=== PATIENT | male | born 1980 | race Two or more races ===

== ENCOUNTER 2017-03-15 14:19 | Emergency (ER) | payer SELFPAY ==
--- NOTE | 2017-03-15 15:00 | ER Document Report ---
ED General - General Chief Complaint: Leg Pain Stated Complaint: POSSIBLE BLOOD CLOT Time Seen by Provider: 03/15/17 14:49 TRAVEL OUTSIDE OF THE [place] IN LAST 30 DAYS: No - HPI Patient complains to provider of: Left Lower Extremity Pain 05/27. For the last month Onset/Duration: Gradual Quality of pain: Achy, Burning Severity: Severe Associated symptoms: None Exacerbated by: Sitting Relieved by: Standing Notes: 37-year-old man with history of previous pulmonary embolus presents with concern of blood clot in his left lower extremity. Patient is to the last month he has been having increasing calf pain. This is independent of swelling. No cords felt in his leg. When patient got his previous pulmonary embolus he was hospitalized at the time status post surgery. Denies any active malignancy or, fever. Patient denies any recent trauma or long travel. Denies that his legs are different sizes are overlying erythema. Denies shortness of breath or cough. - Related Data Allergies/Adverse Reactions: No Known Allergies Allergy (Unverified 03/15/17 14:23) Past Medical History - Social History Smoking Status: Never Smoker Chew tobacco use (# tins/day): No Frequency of alcohol use: None Drug Abuse: None Family History: None Renal/ Medical History: Denies: Hx Peritoneal Dialysis Past Surgical History: Reports: Hx Abdominal Surgery - tumor removal Review of Systems - Review of Systems Constitutional: No symptoms reported EENT: No symptoms reported Cardiovascular: No symptoms reported Respiratory: No symptoms reported Gastrointestinal: No symptoms reported Genitourinary: No symptoms reported Male Genitourinary: No symptoms reported Musculoskeletal: Other - Left calf tender, NOT located over deep venous system Skin: No symptoms reported Hematologic/Lymphatic: No symptoms reported Neurological/Psychological: No symptoms reported Physical Exam - Vital signs Vitals: Temp Pulse Resp BP Pulse Ox 97.8 F 95 16 157/119 H 98 03/15/17 14:23 03/15/17 14:23 03/15/17 14:23 03/15/17 14:23 03/15/17 14:23 Interpretation: Normal - General General appearance: Appears well, Alert - HEENT Head: Normocephalic, Atraumatic Eyes: Normal Pupils: PERRL - Respiratory Respiratory status: No respiratory distress Chest status: Nontender Breath sounds: Normal Chest palpation: Normal - Cardiovascular Rhythm: Regular Heart sounds: Normal auscultation Murmur: No - Abdominal Inspection: Normal Distension: No distension Bowel sounds: Normal Tenderness: Nontender Organomegaly: No organomegaly - Back Back: Normal, Nontender - Extremities General upper extremity: Normal inspection, Nontender, Normal color, Normal ROM , Normal temperature General lower extremity: Normal inspection, Tender, Normal color, Normal ROM, Normal temperature, Normal weight bearing. No: Edema, Nigel's sign - Neurological Neuro grossly intact: Yes Cognition: Normal Orientation: AAOx4 [place] Coma Scale Eye Opening: Spontaneous [place] Coma Scale Verbal: Oriented [place] Coma Scale Motor: Obeys Commands [place] Coma Scale Total: 15 Speech: Normal Motor strength normal: LUE, RUE, LLE, RLE Sensory: Normal - Psychological Associated symptoms: Normal affect, Normal mood - Skin Skin Temperature: Warm Skin Moisture: Dry Skin Color: Normal Course - Re-evaluation Re-evalutation: 03/15/17 15:00 Appearing young man with history of pulmonary embolus presents with concern of a DVT. [employer] DVT occurred. Patient is low risk with a score of 1, labs including d-dimer per 03/15/17 17:12 - Vital Signs Vital signs: Temp Pulse Resp BP Pulse Ox 97.6 F 60 16 149/98 H 100 03/15/17 17:03 03/15/17 17:03 03/15/17 17:03 03/15/17 17:03 03/15/17 17:03 - Laboratory Result Diagrams: 03/15/17 15:00 03/15/17 15:00 Laboratory results interpreted by me: 03/15/17 15:00 WBC 3.4 L Discharge - Discharge Clinical Impression: Left knee pain Qualifiers: Chronicity: acute Qualified Code(s): M25.562 - Pain in left knee Inguinal hernia Qualifiers: Obstruction and gangrene presence: without obstruction or gangrene Laterality: unilateral Recurrence: non-recurrent Qualified Code(s): K40.90 - Unilateral inguinal hernia, without obstruction or gangrene, not specified as recurrent Condition: Stable Disposition: HOME, SELF-CARE Instructions: Hernia ([facility]), Suspected Internal Knee Injury ([facility]) Additional Instructions: Follow up with your primary care provider and a surgeon in one to 2 days. Return to the emergency room immediately if symptoms worsen or any additional concerns. Referrals: NADINE WERNER MD [ACTIVE STAFF] - Follow up as needed
[2017-03-15 15:27] LABS: ABSOLUTE LYMPHOCYTES (AUTO) 1.3 10^3/uL (0.5-4.7); ABSOLUTE MONOCYTES (AUTO) 0.4 10^3/uL (0.1-1.4); ABSOLUTE NEUT (AUTO) 1.7 10^3/uL (1.7-8.2); BASOPHILS % (AUTO) 1.2 % (0-2); EOSINOPHILS % (AUTO) 0.3 % (0-6); HEMATOCRIT 46.8 % (37.9-51.0); HEMOGLOBIN 15.8 g/dL (13.5-17.0); HGB HCT DIFFERENCE 0.6; LYMPHOCYTES % (AUTO) 38.1 % (13-45); MEAN CORPUSCULAR HEMOGLOBIN 31.3 pg (27.0-33.4); MEAN CORPUSCULAR HGB CONC 33.9 g/dL (32.0-36.0); MEAN CORPUSCULAR VOLUME 92 fl (80-97); MONOCYTES % (AUTO) 11.1 % (3-13); RED BLOOD COUNT 5.07 10^6/uL (4.35-5.55); RED CELL DISTRIBUTION WIDTH 13.6 % (11.5-14.0); SEGMENTED NEUTROPHILS % (AUTO) 49.3 % (42-78); WHITE BLOOD COUNT 3.4 10^3/uL (4.0-10.5)
[2017-03-15 15:34] LABS: ANION GAP 13 (5-19); BLOOD UREA NITROGEN 10 mg/dL (7-20); CALCIUM 9.6 mg/dL (8.4-10.2); CARBON DIOXIDE 27 mmol/L (22-30); CHLORIDE 100 mmol/L (98-107); CREATININE RESULT 0.93 mg/dL (0.52-1.25); GLUCOSE 78 mg/dL (75-110); POTASSIUM 4.2 mmol/L (3.6-5.0); SODIUM 140.2 mmol/L (137-145)
--- NOTE | 2017-03-15 15:51 | ER Document Report ---
ED Extremity Problem, Lower - General Chief Complaint: Leg Pain Stated Complaint: POSSIBLE BLOOD CLOT Time Seen by Provider: 03/15/17 14:49 Mode of Arrival: Ambulatory Information source: Patient TRAVEL OUTSIDE OF THE [place] IN LAST 30 DAYS: No - HPI Patient complains to provider of: Pain, Swelling Location: Leg Occurred: Other - 2 weeks Onset/Duration: Gradual Quality of pain: Achy Severity: Moderate Pain Level: 3 Recent injury: No Associated symptoms: Chills Notes: Patient is a 37-year-old male who presents to the emergency room complaining of pain in his left calf and posterior knee, this been going on for the past 2 weeks, he denies any injury or trauma, he reports a history of pulmonary emboli after surgery sometime in 2005, he is not currently anticoagulated, he denies any chest pain or shortness of breath, no recent surgeries, no recent periods of immobilization, he does report some lymph node swelling in his left inguinal area as well which comes and goes, denies dysuria or hematuria, no nausea, vomiting or diarrhea, he does get night sweats at times - Related Data Allergies/Adverse Reactions: No Known Allergies Allergy (Unverified 03/15/17 14:23) Past Medical History - General Information source: Patient - Social History Smoking Status: Never Smoker Chew tobacco use (# tins/day): No Frequency of alcohol use: None Drug Abuse: None Family History: Reviewed & Not Pertinent Renal/ Medical History: Denies: Hx Peritoneal Dialysis Past Surgical History: Reports: Hx Abdominal Surgery - tumor removal Review of Systems - Review of Systems Constitutional: No symptoms reported EENT: No symptoms reported Cardiovascular: No symptoms reported Respiratory: No symptoms reported Gastrointestinal: No symptoms reported Genitourinary: No symptoms reported Male Genitourinary: No symptoms reported Musculoskeletal: See HPI Skin: No symptoms reported Hematologic/Lymphatic: No symptoms reported Neurological/Psychological: No symptoms reported -: Yes All other systems reviewed and negative Physical Exam - Vital signs Vitals: Temp Pulse Resp BP Pulse Ox 97.8 F 95 16 157/119 H 98 03/15/17 14:23 03/15/17 14:23 03/15/17 14:23 03/15/17 14:23 03/15/17 14:23 Interpretation: Normal - General General appearance: Appears well, Alert - HEENT Head: Normocephalic, Atraumatic Eyes: Normal Pupils: PERRL - Respiratory Respiratory status: No respiratory distress Chest status: Nontender Breath sounds: Normal Chest palpation: Normal - Cardiovascular Rhythm: Regular Heart sounds: Normal auscultation Murmur: No - Abdominal Inspection: Normal Distension: No distension Bowel sounds: Normal Tenderness: Other - Small hernia in the left inguinal area that easily reduces with gentle palpation Organomegaly: No organomegaly - Back Back: Normal, Nontender - Extremities General upper extremity: Normal inspection, Nontender, Normal color, Normal ROM , Normal temperature Calf: Tender - Left side - Neurological Neuro grossly intact: Yes Cognition: Normal Orientation: AAOx4 [place] Coma Scale Eye Opening: Spontaneous [place] Coma Scale Verbal: Oriented [place] Coma Scale Motor: Obeys Commands [place] Coma Scale Total: 15 Speech: Normal Motor strength normal: LUE, RUE, LLE, RLE Sensory: Normal - Psychological Associated symptoms: Normal affect, Normal mood - Skin Skin Temperature: Warm Skin Moisture: Dry Skin Color: Normal Course - Re-evaluation Re-evalutation: 03/15/17 16:37 Lab and imaging findings discussed with patient at bedside which are unremarkable, symptoms likely related to soft tissue injury of the knee causing pain, he also had a small left inguinal easily reducible hernia, was provided with information to follow-up with surgery, advised to return if symptoms worsen , patient acknowledges understanding and agreement with this plan - Vital Signs Vital signs: Temp Pulse Resp BP Pulse Ox 97.8 F 95 16 157/119 H 98 03/15/17 14:23 03/15/17 14:23 03/15/17 14:23 03/15/17 14:23 03/15/17 14:23 - Laboratory Result Diagrams: 03/15/17 15:00 03/15/17 15:00 Laboratory results interpreted by me: 03/15/17 15:00 WBC 3.4 L Discharge - Discharge Clinical Impression: Left knee pain Qualifiers: Chronicity: acute Qualified Code(s): M25.562 - Pain in left knee Inguinal hernia Qualifiers: Obstruction and gangrene presence: without obstruction or gangrene Laterality: unilateral Recurrence: non-recurrent Qualified Code(s): K40.90 - Unilateral inguinal hernia, without obstruction or gangrene, not specified as recurrent Condition: Stable Disposition: HOME, SELF-CARE Instructions: Suspected Internal Knee Injury ([facility]), Hernia ([facility]) Additional Instructions: Follow up with your primary care provider and a surgeon in one to 2 days. Return to the emergency room immediately if symptoms worsen or any additional concerns. Referrals: NADINE WERNER MD [ACTIVE STAFF] - Follow up as needed
--- NOTE | 2017-03-15 16:34 | RADIOLOGY REPORT (SQ) ---
EXAM DESCRIPTION: VENOUS UNILATERAL LOWER COMPLETED DATE/TIME: 03/15/2017 4:16 pm REASON FOR STUDY: left lower leg pain COMPARISON: None. TECHNIQUE: Dynamic and static dhillon scale and color images acquired of the left leg venous system. Se lected spectral images acquired with additional compression and augmentation maneuvers. The contralat eral common femoral vein and saphenofemoral junction were also imaged. Images stored on PACS. LIMITATIONS: None. FINDINGS: COMMON FEMORAL: Normal phasicity, compression and augmentation. No visualized echogenic ma terial on dhillon scale. No defects on color images. FEMORAL: Normal compression and augmentation. No visualized echogenic material on dhillon scale. No defe cts on color images. POPLITEAL: Normal compression, augmentation. No visualized echogenic material on dhillon scale. No defec ts on color images. CALF VESSELS: Normal compression, augmentation. No visualized echogenic material on dhillon scale. No de fects on color images. GSV and SSV: Normal compression, augmentation. No visualized echogenic material on dhillon scale. No def ects on color images. ANY DEEP VENOUS INSUFFICIENCY: Not evaluated. ANY EVIDENCE OF POPLITEAL CYST: No. OTHER: No other significant finding. CONTRALATERAL COMMON FEMORAL VEIN AND SAPHENOFEMORAL JUNCTION: Normal phasicity, compression and augmentation. No visualized echogenic material on dhillon scale. No de fects on color images. IMPRESSION: NO EVIDENCE DVT OR SVT IN THE LEFT LEG. TECHNICAL DOCUMENTATION: JOB ID: [id number] [employer]- All Rights Reserved
[2017-03-15 17:05] VITALS: BP 149/98
== END 2017-03-15 17:00 | disposition home or self-care (01) ==
LOC: ER 14:19
DX: K40.90 Unilateral inguinal hernia, without obstruction or gangrene, not specified as recurrent (principal); M25.562 Pain in left knee; M79.605 Pain in left leg; M79.89 Other specified soft tissue disorders
CPT/HCPCS: 36415; 80048; 85025; 85379; 93971; 99284

== ENCOUNTER 2018-02-13 12:02 | Emergency (ER) | payer SELFPAY ==
--- NOTE | 2018-02-13 12:45 | ER Document Report ---
ED General - General Chief Complaint: Dizziness Stated Complaint: DIZZINESS Time Seen by Provider: 02/13/18 12:37 Notes: 38-year-old male here with complaints of lightheadedness and slight blurry vision as well as confusion this morning the lasted approximately 20 minutes before complete resolution. He states he has been drinking plenty of fluids and has not worked outside in the heat for a long time. He has had this once before in the past and his sugar was found to be 50. He denies any history of diabetes or other endocrine disorders. He denies any pain. TRAVEL OUTSIDE OF THE [place] IN LAST 30 DAYS: No - Related Data Allergies/Adverse Reactions: No Known Allergies Allergy (Verified 02/13/18 12:02) Past Medical History - Social History Smoking Status: Former Smoker Chew tobacco use (# tins/day): No Frequency of alcohol use: Rare Drug Abuse: None Family History: Reviewed & Not Pertinent Patient has suicidal ideation: No Patient has homicidal ideation: No Renal/ Medical History: Denies: Hx Peritoneal Dialysis Past Surgical History: Reports: Hx Abdominal Surgery - tumor removal Review of Systems - Review of Systems Notes: See history of present illness for pertinent positive review of systems; otherwise all review of systems have been reviewed and are negative Physical Exam - Vital signs Vitals: Temp Pulse Resp BP Pulse Ox 97.8 F 70 16 151/94 H 98 02/13/18 12:05 02/13/18 12:05 02/13/18 12:05 02/13/18 12:05 02/13/18 12:05 - Notes Notes: PHYSICAL EXAMINATION: GENERAL: Well-appearing and in no acute distress. HEAD: Atraumatic, normocephalic. EYES: Pupils equal round and reactive to light, extraocular movements intact, sclera anicteric, conjunctiva are normal. ENT: nares patent, oropharynx clear without exudates. Moist mucous membranes. NECK: Normal range of motion, supple without lymphadenopathy LUNGS: CTAB and equal. No wheezes rales or rhonchi. HEART: Regular rate and rhythm without murmurs ABDOMEN: Soft, no tenderness. No facial grimacing/wincing upon palpation. No guarding, no rebound. EXTREMITIES: Normal range of motion, no pitting edema. No cyanosis. NEUROLOGICAL: Cranial nerves grossly intact. Normal sensory/motor exams. No pronator drift. Finger to nose coordination intact PSYCH: Normal mood, normal affect. SKIN: Warm, Dry, normal turgor, no rashes or lesions noted Course - Vital Signs Vital signs: Temp Pulse Resp BP Pulse Ox 97.8 F 70 16 151/94 H 98 02/13/18 12:05 02/13/18 12:05 02/13/18 12:05 02/13/18 12:05 02/13/18 12:05
[2018-02-13 13:11] LABS: ABSOLUTE MONOCYTES (AUTO) 0.4 10^3/uL (0.1-1.4); ABSOLUTE NEUT (AUTO) 1.7 10^3/uL (1.7-8.2); BASOPHILS % (AUTO) 0.6 % (0-2); EOSINOPHILS % (AUTO) 0.3 % (0-6); HEMATOCRIT 46.4 % (37.9-51.0); HEMOGLOBIN 15.8 g/dL (13.5-17.0); LYMPHOCYTES % (AUTO) 30.9 % (13-45); MEAN CORPUSCULAR HEMOGLOBIN 31.2 pg (27.0-33.4); MEAN CORPUSCULAR VOLUME 92 fl (80-97); MONOCYTES % (AUTO) 12.7 % (3-13); PLATELET COUNT 194 10^3/uL (150-450); RED BLOOD COUNT 5.05 10^6/uL (4.35-5.55); RED CELL DISTRIBUTION WIDTH 13.1 % (11.5-14.0); SEGMENTED NEUTROPHILS % (AUTO) 55.5 % (42-78); TOTAL CELLS COUNTED % (AUTO) 100 %; WHITE BLOOD COUNT 3.1 10^3/uL (4.0-10.5)
[2018-02-13 13:30] LABS: ALANINE AMINOTRANSFERASE 30 U/L (21-72); ALKALINE PHOSPHATASE 73 U/L (38-126); ANION GAP 10 (5-19); ASPARTATE AMINO TRANSFERASE 35 U/L (17-59); BILIRUBIN,DIRECT 0.3 mg/dL (0.0-0.4); BILIRUBIN,TOTAL 0.7 mg/dL (0.2-1.3); BLOOD UREA NITROGEN 7 mg/dL (7-20); CALCIUM 10.4 mg/dL (8.4-10.2); CARBON DIOXIDE 33 mmol/L (22-30); CHLORIDE 103 mmol/L (98-107); GLUCOSE 62 mg/dL (75-110); PHOSPHORUS 4.4 mg/dL (2.5-4.5); SODIUM 146.1 mmol/L (137-145); TOTAL PROTEIN 8.4 g/dL (6.3-8.2)
[2018-02-13] MEDS ORDERED: HYDRALAZINE HCL INJ/PF 20 MG/1 ML SDV IV ONE (13:36)
--- NOTE | 2018-02-13 15:06 | ER Document Report ---
ED General - General Chief Complaint: Dizziness Stated Complaint: DIZZINESS Time Seen by Provider: 02/13/18 12:37 Notes: 38-year-old male presents emergency department signs of lightheadedness and blurred vision. Patient states that his symptoms started while he was at work. He was standing when symptoms started. He felt like he was going to passout. No syncopal episode. Patient says his symptoms lasted about 10-20 minutes and then completely resolved. Patient states that he has had prior episodes in the past secondary to low blood sugar. Patient states that is what happened this morning. He denies a history of diabetes. He states that he has been drinking plenty of fluids. He denies any speech changes, numbness, tingling, weakness, chest pain, shortness of breath, abdominal pain. TRAVEL OUTSIDE OF THE [place] IN LAST 30 DAYS: No - HPI Onset: This morning Onset/Duration: Sudden Quality of pain: No pain Severity: None Pain Level: Denies Associated symptoms: None Exacerbated by: Denies Relieved by: Denies Similar symptoms previously: Yes Recently seen / treated by doctor: No - Related Data Allergies/Adverse Reactions: No Known Allergies Allergy (Verified 02/13/18 12:02) Past Medical History - Social History Smoking Status: Former Smoker Chew tobacco use (# tins/day): No Frequency of alcohol use: Rare Drug Abuse: None Family History: Reviewed & Not Pertinent Patient has suicidal ideation: No Patient has homicidal ideation: No Renal/ Medical History: Denies: Hx Peritoneal Dialysis Past Surgical History: Reports: Hx Abdominal Surgery - tumor removal Review of Systems - Review of Systems EENT: No symptoms reported Cardiovascular: Lightheaded Respiratory: No symptoms reported Gastrointestinal: No symptoms reported Genitourinary: No symptoms reported Musculoskeletal: No symptoms reported Skin: No symptoms reported - blurred vision Physical Exam - Vital signs Vitals: Temp Pulse Resp BP Pulse Ox 97.8 F 70 16 151/94 H 98 02/13/18 12:05 02/13/18 12:05 02/13/18 12:05 02/13/18 12:05 02/13/18 12:05 Interpretation: Normal - Notes Notes: PHYSICAL EXAMINATION: GENERAL: Well-appearing, well-nourished and in no acute distress. HEAD: Atraumatic, normocephalic. EYES: Pupils equal round and reactive to light, extraocular movements intact, sclera anicteric, conjunctiva are normal. ENT: Nares patent, oropharynx clear without exudates. Moist mucous membranes. NECK: Normal range of motion, supple without lymphadenopathy LUNGS: Breath sounds clear to auscultation bilaterally and equal. No wheezes rales or rhonchi. HEART: Regular rate and rhythm without murmurs ABDOMEN: Soft, nontender, nondistended abdomen. No guarding, no rebound. No masses appreciated. Musculoskeletal: Normal range of motion, no pitting or edema. No cyanosis. NEUROLOGICAL: Cranial nerves grossly intact. Normal speech, normal gait. Normal sensory, motor exams PSYCH: Normal mood, normal affect. SKIN: Warm, Dry, normal turgor, no rashes or lesions noted. Course - Re-evaluation Re-evalutation: 02/13/18 16:13 Blood glucose is 62. Patient given food. Patient feeling better on re- evaluation. Orthostatics remarkable for a drop in systolic blood pressure but more than 20 to diagnose orthostatic hypotension. HTN resolving. I will discharge the patient home as he is asymptomatic and has no neuro deficits. Patient instructed to follow up with his PCP this week and to return for worsening symptoms. 02/13/18 16:15 - Vital Signs Vital signs: Temp Pulse Resp BP Pulse Ox 97.8 F 59 L 16 144/92 H 98 02/13/18 12:05 02/13/18 13:04 02/13/18 12:05 02/13/18 14:30 02/13/18 12:05 - Laboratory Result Diagrams: 02/13/18 12:55 02/13/18 12:55 Laboratory results interpreted by me: 02/13/18 02/13/18 12:55 12:55 WBC 3.1 L Sodium 146.1 H Carbon Dioxide 33 H Glucose 62 L Calcium 10.4 H Total Protein 8.4 H - EKG Interpretation by Me Additional EKG results interpreted by me: 02/13/18 16:41 EKG: Ventricular rate 100, Perative 136, QRS duration 82, QTc 423, sinus tachycardia, no ischemic changes. Discharge - Discharge Clinical Impression: Hypoglycemia Condition: Good Disposition: HOME, SELF-CARE Instructions: Hypoglycemia ([facility]) Referrals: VEE NAVARRO DO [Primary Care Provider] - Follow up as needed
[2018-02-13] MEDS ORDERED: DEXTROSE 50%-WATER 25 GM/50 ML DISP.SYRIN IV ONE (15:41)
[2018-02-13 16:50] VITALS: BP 154/99
--- NOTE | 2018-02-14 00:18 | EKG REPORT ---
SEVERITY:- OTHERWISE NORMAL ECG - SINUS TACHYCARDIA : Confirmed by: Liz Mancini MD 14-Feb-2018 00:17:12
== END 2018-02-13 16:47 | disposition home or self-care (01) ==
LOC: ER 12:02
DX: E16.2 Hypoglycemia, unspecified (principal); R42 Dizziness and giddiness; H53.8 Other visual disturbances; Z87.891 Personal history of nicotine dependence
CPT/HCPCS: 93005; 99284; 96374; 36415; 82962; 83735; 84100; 85025; 80053; 93010; J0360

== ENCOUNTER 2018-03-13 05:29 | Day surgery (SDC) | payer OTHER ==
[2018-03-06 09:15] LABS: HEMATOCRIT 41.7 % (37.9-51.0); HEMOGLOBIN 14.4 g/dL (13.5-17.0); MEAN CORPUSCULAR HGB CONC 34.5 g/dL (32.0-36.0); MEAN CORPUSCULAR VOLUME 93 fl (80-97); PLATELET COUNT 197 10^3/uL (150-450); RED BLOOD COUNT 4.49 10^6/uL (4.35-5.55); RED CELL DISTRIBUTION WIDTH 13.5 % (11.5-14.0); WHITE BLOOD COUNT 2.7 10^3/uL (4.0-10.5)
[~2018-03-13 05:29] MED LIST: ACETAMINOPHEN 325 MG TABLET PO PRN; CEFAZOLIN 2 GM/D5W RTU 2 GM/50 ML RTUPB IV PRN; LACTATED RINGERS 1000 ML IV PRN; LIDOCAINE 0.5% INJ-PF (5 MG/ML) 50 ML SDV SUBCUT PRN
[2018-03-13] MEDS ORDERED: MIDAZOLAM 2 MG/2 ML INJ ONE (07:16)
[2018-03-13] MEDS ORDERED: FENTANYL CITRATE INJ/PF 250 MCG/5 ML AMPULE ONE (07:16)
[2018-03-13] MEDS ORDERED: PROPOFOL INJ 200 MG/20 ML VIAL IV ONE (07:17)
[2018-03-13] MEDS ORDERED: ACETAMINOPHEN 1,000 MG/100 ML RTUPB IV ONE (07:17)
[2018-03-13] MEDS ORDERED: BUPIVACAINE HCL 0.25 % INJ/PF (2.5 MG/1 ML) 30 ML VIAL ONE (07:37)
[2018-03-13] MEDS ORDERED: FENTANYL CITRATE INJ/PF 100 MCG/2 ML AMPUL IV PRN ×3 (08:20)
[2018-03-13] MEDS ORDERED: DIPHENHYDRAMINE HCL 50 MG/ML VIAL IV PRN (08:20)
[2018-03-13] MEDS ORDERED: OXYCODONE-ACETAMINOPHEN 5-325 MG TABLET PO PRN ×2 (08:20)
[2018-03-13] MEDS ORDERED: MEPERIDINE HCL/PF INJ 25 MG/1 ML DISP.SYRIN IV PRN (08:20)
[2018-03-13] MEDS ORDERED: PROMETHAZINE HCL INJ 25 MG/1 ML VIAL IV PRN ×2 (08:20)
--- NOTE | 2018-03-13 10:54 | Discharge Summary ---
Discharge Summary ([facility]) - Discharge Final Diagnosis: bilateral inguinal hernia Date of Surgery: 03/13/18 Discharge Date: 03/13/18 Condition: Stable Treatment or Instructions: Okay to shower on Friday. Wash incisions with soap and water. No tub baths 2 weeks. [place] 10/325 mg p.o. every 6 hours as needed pain. No lifting greater than 10 pounds 4 weeks. Follow-up with me in 7-10 days. Referrals: LILIANA RESTREPO MD [Primary Care Provider] - Discharge Diet: As Tolerated Respiratory Treatments at Home: Deep Breathing/Coughing, Incentive Spirometer Discharge Activity: No Lifting Over 10 Pounds Home Care Assistance: None Needed Report the Following to Your Physician Immediately: Shortness of Breath, Nausea , Vomiting, Increase in Pain, Fever over 101 Degrees, Unusual Bleeding, Redness , Swelling, Warmth
[2018-03-13] MEDS ORDERED: FENTANYL CITRATE INJ/PF 100 MCG/2 ML AMPUL ONE (11:19)
[2018-03-13] MEDS ORDERED: ROCURONIUM BROMIDE INJ 50 MG/5 ML VIAL IV ONE (11:39)
[2018-03-13] MEDS ORDERED: KETOROLAC TROMETHAMINE 60 MG/2 ML SDV ONE (11:39)
[2018-03-13] MEDS ORDERED: DEXAMETHASONE SOD PHOSPHATE INJ 4 MG/1 ML VIAL ONE (11:39)
[2018-03-13] MEDS ORDERED: SUCCINYLCHOLINE CHLORIDE INJ 200 MG/10 ML VIAL ONE (11:39)
[2018-03-13] MEDS ORDERED: ONDANSETRON HCL INJ/PF 4 MG/2 ML SDV ONE (11:39)
[2018-03-13] MEDS ORDERED: HYDROCODONE/ACETAMINOPHEN 10-325 MG TABLET ONE (12:19)
[2018-03-13 13:35] VITALS: BP 120/72
--- NOTE | 2018-03-15 13:49 | Operative Report ---
Nonrecallable Operative Report DATE OF SURGERY: 03/13/18 PREOPERATIVE DIAGNOSIS: Bilateral, symptomatic inguinal hernias. POSTOPERATIVE DIAGNOSIS: Bilateral indirect inguinal hernias. OPERATION: Robot-assisted laparoscopic bilateral inguinal hernia repair with mesh. SURGEON: RICHELLE HUMPHRIES ANESTHESIA: GA TISSUE REMOVED OR ALTERED: None COMPLICATIONS: None apparent ESTIMATED BLOOD LOSS: Minimal PROCEDURE: Implants: Right and left large 3 DMax inguinal hernia mesh. Procedure in detail: After informed consent was obtained, the patient was brought into the operating room and laid in the supine position. The area of the abdomen was prepped and draped in a normal sterile fashion. A 15 blade scalpel was used to create a supraumbilical incision. This was deepened through the use of sharp dissection. The fascia was then incised sharply. The abdomen was entered sharply. Upon entry into the abdomen there was noted to be a moderate amount of intra-abdominal adhesions. Under direct visualization, fat and small intestine were freed from the anterior abdominal wall at the incision site. This was done sharply with Metzenbaum scissors. Once the area was freed, the balloon trocar was inserted, and pneumoperitoneum was achieved. Next, right and left-sided 8 mm robotic trochars were placed under direct laparoscopic visualization. There were several more adhesions of the small bowel and omentum to the anterior abdominal wall. These were then lysed laparoscopically. Once the anterior abdominal wall was free of intestinal adhesions, attention was turned to repair of the patient's hernias. The right side had an indirect defect apparent. The peritoneum was opened 2-3 cm superior to the defect using electrocautery. A preperitoneal dissection was then undertaken using blunt dissection, sharp dissection, and electrocautery. The hernia sac was freed from the cord structures. This was done with great care, so as not to injure the cord structures. Once the sac was freed, a right sided large 3 DMax inguinal hernia mesh was placed into the preperitoneal space and situated over the defect. The mesh was sutured to the anterior abdominal wall medially and superiorly using 2-0 Vicryl suture. Once this was complete, the mesh was found to lie in good place. The peritoneum was then closed using 2 -0 V lock suture in simple running fashion. Attention was then turned to the left side. The left side also had an indirect inguinal hernia defect present. An incision was created 2-3 cm superior to the defect in the peritoneum. This was done with electrocautery. The preperitoneal dissection was then undertaken using sharp dissection, blunt dissection, and electrocautery. The hernia sac was freed from the cord structures. This was done with great care, so as not to injure the cord structures. Once the sac was freed, a left-sided 3 DMax large inguinal hernia mesh was placed into the preperitoneal space. It was situated over the defect. It was sutured to the anterior abdominal wall using 2-0 Vicryl suture medially and superiorly. Once this was completed, the mesh was found to lie in good place. The peritoneum was closed over the mesh using 2-0 V lock suture in simple running fashion. The repairs were then inspected, and found to be in good order. The robot was then undocked. I then scrubbed back into the case. Inspection of the small bowel was then undertaken. No injury to the small bowel was identified in the areas that underwent lysis of adhesions. Once this was confirmed, the trochars were removed and pneumoperitoneum was relieved. The midline fascia was closed using 0 Vicryl suture in [id number] fashion. The overlying skin was closed using 4-0 Vicryl Rapide suture in subcuticular fashion. All sponge, instrument , and needle counts were correct 2. Condition: Stable.
== END 2018-03-13 13:15 | disposition home or self-care (01) ==
LOC: OROUT 05:29
PROVIDERS: ATTEND Surgery
DX: K40.20 Bilateral inguinal hernia, without obstruction or gangrene, not specified as recurrent (principal); I10 Essential (primary) hypertension; E11.9 Type 2 diabetes mellitus without complications; Z86.711 Personal history of pulmonary embolism; Z87.891 Personal history of nicotine dependence
CPT/HCPCS: 49650; S2900; 36415; 82947; 82962; 840; 85027; 86850; 86900; 86901; J0131; J0330; J0690; J1100; J1885; J2250; J2405; J2704; J3010; J3490